=== PATIENT | male | born 2000 | race Caucasian/White ===

== ENCOUNTER 2019-01-08 18:58 | Emergency (ER) | payer OTHER ==
[2019-01-08] MEDS ORDERED: ONDANSETRON 4 MG/2 ML VIAL IVPUSH ONE (19:10)
--- NOTE | 2019-01-08 19:10 | PDOC ---
Rapid Medical Evaluation Time Seen by Provider: 01/08/19 19:08 Medical Evaluation: 01/08/19 19:08 HPI: Abdominal pain x4 days increasing over the last 2 days PE: B UQ tenderness no rebound ORDERS: Labs Discharge Disposition - Diagnosis Abdominal pain - Referrals - Patient Instructions - Post Discharge Activity
[2019-01-08 19:11] VITALS: BMI 30.2
--- NOTE | 2019-01-08 19:36 | PDOC ---
History of Present Illness - General Chief Complaint: Pain Stated Complaint: ABD PAIN Time Seen by Provider: 01/08/19 19:08 History Source: Patient Exam Limitations: No Limitations - History of Present Illness Initial Comments: 01/08/19 20:16 18-year-old male presents to the emergency department complaining of intermittent, sharp, epigastric pain for the past several days, that is increased in severity over the past 2 days, waxing and waning, nonradiating, associated with nonbloody nonbilious vomiting and nausea. Patient endorses anorexia and exacerbation of pain postprandially. Patient denies diarrhea/fever/ chills/melena/bright red blood per rectum. There is no history travel or sick contacts. REVIEW OF SYSTEMS CONSTITUTIONAL: No fever, no chills, no fatigue EYES: No visual changes ENT: No ear pain, no sore throat CARDIOVASCULAR: No chest pain, no palpitations RESPIRATORY: No cough, no SOB GI: + abdominal pain, + nausea, + vomiting, no constipation, no diarrhea GENITOURINARY: No dysuria, no frequency, no hematuria MUSKULOSKELETAL: No backpain, no joint pain, no myalgias SKIN: No rash NEURO: No headache EXAMINATION CONSTITUTIONAL: Well-appearing; well-nourished; in no apparent distress HEAD: Normocephalic; atraumatic EYES: PERRL; EOM intact; no icterus ENMT: External appears normal; mm-dry NECK: Supple; non-tender; no cervical lymphadenopathy CARD: Normal S1, S2; no murmurs, rubs, or gallops RESP: Normal chest excursion with respiration; breath sounds clear and equal bilaterally; no wheezes, rhonchi, or rales ABD: Soft, non-distended; + epigastric and rlq tender to palp; no cva ttp; no palpable organomegaly, no palpable hernias EXT: Normal ROM in all four extremities; non-tender to palpation; distal pulses intact SKIN: Warm, dry, no rash NEURO: No focal neurological deficiencies. Past History - Past Medical History Allergies/Adverse Reactions: Allergies Allergy/AdvReac Type Severity Reaction Status Date / Time No Known Allergies Allergy Verified 01/08/19 19:11 Home Medications: Ambulatory Orders NK [No Known Home Medication] 01/08/19 COPD: No - Psycho Social/Smoking Cessation Hx Smoking History: Never smoked *Physical Exam - Vital Signs Last Vital Signs Temp Pulse Resp BP Pulse Ox 98.5 F 90 18 132/82 99 01/08/19 19:09 01/08/19 19:09 01/08/19 19:09 01/08/19 19:09 01/08/19 19:09 ED Treatment Course - LABORATORY CBC & Chemistry Diagram: 01/08/19 20:47 01/08/19 20:47 Medical Decision Making - Medical Decision Making 01/08/19 20:20 18-year-old male presents with signs and symptoms of acute gastritis with epigastric pain associated with nausea, vomiting and anorexia. Mild right lower quadrant tenderness is appreciated. Will obtain CBC/CMP/lipase/UA. Will hydrate ; we'll administer H2 blockers. Will reassess. Will consider CT of abdomen and pelvis 01/08/19 22:16 Patient reassessed. It was patient is resting comfortably. Epigastric pain has decreased however, right lower quadrant pain has persisted. CBC/CMP/lipase/UA within normal limit. Will obtain CT abd and pelvis to rule out appendicitis. Will continue to hydrate. 01/09/19 01:06 Patient reassessed. Patient is resting comfortably, pain free, tolerates by mouth. Abdominal exam reveals mild epigastric tenderness only. Right lower quadrant tenderness noted previously is no longer present. Will discharge with instructions to take omeprazole in the a.m. and Zantac in the p.m. follow-up Discharge - Discharge Information Problems reviewed: Yes Clinical Impression/Diagnosis: Abdominal pain Qualifiers: Abdominal location: unspecified location Qualified Code(s): R10.9 - Unspecified abdominal pain Condition: Stable Disposition: HOME - Admission No - Follow up/Referral Referrals: Becki Gaitan [Primary Care Provider] - Fransico Huang MD [Staff Physician] - - Patient Discharge Instructions Patient Printed Discharge Instructions: DI for Abdominal Pain-Adult - Post Discharge Activity
[2019-01-08] MEDS ORDERED: SODIUM CHLORIDE 1,000 ML IV STA ×2 (19:53→21:54)
[2019-01-08] MEDS ORDERED: FAMOTIDINE 20 MG/50 ML IVPB 20 MG/50 ML MG IVPB ONE ×2 (19:53→20:39)
[2019-01-08] MEDS ORDERED: ONDANSETRON 4 MG/2 ML VIAL ONE (20:39)
[2019-01-08 21:00] LABS: BASO % 0.9 % (0-2.0); EOS % 1.2 % (0-4.5); HEMOGLOBIN 16.5 GM/dL (11.7-16.9); LYMPH % 23.1 % (8-40); MCH 28.6 pg (25.7-33.7); MCHC 33.6 g/dl (32.0-35.9); MEAN PLT VOLUME 8.9 fl (7.5-11.1); NEUT % 65.8 % (42.8-82.8); PLATELET COUNT 284 K/MM3 (134-434); RBC 5.76 M/mm3 (4.00-5.60); RDW 13.3 % (11.9-15.9); WHITE BLOOD COUNT 10.2 K/mm3 (4.0-10.0)
[2019-01-08 21:01] LABS: PH,URINE 8.5 (5.0-8.0); URINE APPEARANCE CLEAR; URINE BILIRUBIN NEGATIVE (NEGATIVE); URINE COLOR YELLOW; URINE GLUCOSE (UA) NEGATIVE (NEGATIVE); URINE KETONE TRACE (NEGATIVE); URINE LEUK ESTERASE NEGATIVE (NEGATIVE); URINE NITRITE NEGATIVE (NEGATIVE); URINE PROTEIN NEGATIVE (NEGATIVE)
[2019-01-08 21:31] LABS: ALBUMIN 4.3 g/dl (3.4-5.0); BILIRUBIN,TOTAL 0.6 mg/dL (0.2-1); BLOOD UREA NITROGEN 11.5 mg/dL (7-18); CALCIUM 9.8 mg/dL (8.5-10.1); POTASSIUM 4.2 mmol/L (3.5-5.1); TOT PROT 8.6 g/dl (6.4-8.2)
[2019-01-09 02:55] VITALS: BP 130/71; PULSE 81; TEMP 98.3
--- NOTE | 2019-01-09 14:07 | EKG ---
Test Reason : Blood Pressure : / mmHG Vent. Rate : 075 BPM Atrial Rate : 075 BPM P-R Int : 154 ms QRS Dur : 078 ms QT Int : 382 ms P-R-T Axes : 056 027 039 degrees QTc Int : 426 ms NORMAL SINUS RHYTHM NORMAL ECG NO PREVIOUS ECGS AVAILABLE Confirmed by STEFANIA PATEL MD ([id number]) on 01/09/2019 2:07:00 PM Referred By: Confirmed By:STEFANIA PATEL MD
== END 2019-01-09 01:40 | disposition home or self-care (01) ==
LOC: JER 18:58
PROC: 3E0337Z Introduction of Electrolytic and Water Balance Substance into Peripheral Vein, Percutaneous Approach (ICD-10-PCS; principal; 2019-01-08)
PROC: 3E033GC Introduction of Other Therapeutic Substance into Peripheral Vein, Percutaneous Approach (ICD-10-PCS; 2019-01-08)
PROC: 3E033GC Introduction of Other Therapeutic Substance into Peripheral Vein, Percutaneous Approach (ICD-10-PCS; 2019-01-08)
DX: R10.9 Unspecified abdominal pain (principal)
CPT/HCPCS: 36415; 74177-TC; 80053; 81003; 83690; 85025; 87086; 93005; 93010; 99283-25; J7030